=== PATIENT | female | born 1950 | race Caucasian/White ===

== ENCOUNTER 2025-01-11 13:55 | Emergency (ER) | payer MEDICARE, OTHER, SELFPAY ==
[2025-01-11] VITALS (9 sets, daily range): BP systolic 120–150; BP diastolic 53–91
--- NOTE | 2025-01-11 14:02 | ED.GENMED ---
History of Present Illness
<Jose To PA-C - Last Filed: 01/11/25 16:57>
General
Chief Complaint: Change in Mental Status
Time Seen by Provider: 01/11/25 14:00
History of Present Illness
History of Present Illness:
74-year-old female with history of COPD presents to the emergency department for evaluation of severe confusion. Patient cannot provide essentially no history as she is profoundly disoriented and can answer only basic questions, she is aware of
herself but floridly confused otherwise. Patient's daughter states that she has been progressively more confused for the past 2 weeks, they had seen her primary care physician for this and was felt to be due to a medication change that was started
by the patient's marketing coordinator, at this time the patient daughter is not aware of what this medication was. All outside medical care is through [facility]. Daughter notes that in the past 24 hours she has been essentially unable to hold a
conversation which is very atypical. She does have some degree of baseline confusion but nothing to degree that we are seeing currently. She was administered a neb treatment by EMS due to audible wheezing
Review of Systems
<Jose To PA-C - Last Filed: 01/11/25 16:57>
Review of Systems
Allergies reviewed?: Yes
All Other Systems: ROS reviewed and negative except as documented in HPI and ROS
Phy Exam
<Jose To PA-C - Last Filed: 01/11/25 16:57>
Physical Exam
Physical Exam:
GEN: Well appearing, NAD, WDWN
Eyes: PERRLA, EOMs intact, no scleral icterus
HENT: NCAT, oral mucosa dry, no JVD
Lungs: CTAB, no wheezes, rales, rhonchi, normal chest wall excursion
Cardiac: RRR, no M/R/G, no peripheral edema. Radial pulses 2+ bilat
Abdomen: S, NT, ND, NABS, no masses or hepatosplenomegaly
Neuro: Alert, follows commands, profoundly confused. No focal deficits
MSK: No gross deformity or ecchymosis. No edema. No digital clubbing
Skin: No rashes, petechiae. Normal color, no pallor or jaundice.
Psych: Calm, cooperative, somewhat disheveled
Course
<Jose To PA-C - Last Filed: 01/11/25 16:57>
Orders/Labs/Results
Orders:
Orders
01/11/25 14:01
Electrocardiogram (*1) Urgent
Reason for Study: QTc Monitoring
EKG- Treatment ONCE
01/11/25 14:02
CT Head W/o Iv Contrast Urgent
Comment:
Reason For Exam: confusion
01/11/25 14:11
Complete Blood Count/With Diff Urgent
Comprehensive Metabolic Panel Urgent
Serum Osmolality Urgent
TSH Urgent
Comment: ADD ON
Urinalysis Reflex To Culture Urgent
Date Specimen was Collected: 01/11/25
Time Specimen was Collected: 14:10
Urine Microscopic Reflex Cult Urgent
Urine Sodium Urgent
Date Specimen was Collected: 01/11/25
Time Specimen was Collected: 14:10
Urine Culture Urgent
OUMOU Source: U
Specimen Description:
Date Specimen was Collected: 01/11/25
Time Specimen was Collected: 14:10
01/11/25 14:48
Add On- LAB Urgent
Tests Added?: TSH
01/11/25 14:50
0.9% Sodium Chloride 1000 ml [Nss] 1,000 ml IV BOLUS
CefTRIAXone [Rocephin] 1,000 mg IV NOW STA
01/11/25 16:40
Levetiracetam Injectable [Keppra] 1,000 mg IV NOW STA
01/11/25 16:58
Prothrombin Time Urgent
Abnormal Lab Results
09/21/25
14:11
WBC 12.9 H 10^3/uL
(4.8-10.8)
RBC 5.91 H 10^6/uL
(4.20-5.40)
Hgb 16.2 H g/dL
(12.0-16.0)
Hct 49.9 H %
(37.0-47.0)
MCHC 32.5 L g/dL
(33.0-37.0)
Absolute Neuts (auto) 10.5 H 10^3/uL
(1.4-6.5)
Absolute Monos (auto) 0.8 H 10^3/uL
(0.1-0.6)
Neutrophils % 81.1 H %
(42.2-75.2)
Lymphocytes % 12.2 L %
(20.5-51.1)
BUN 35 H mg/dl
(7-17)
Glucose 115 H mg/dl
(70-99)
Serum Osmolality 310 H mOsm/kg
(275-300)
Calcium 11.0 H mg/dl
(8.4-10.2)
Urine Ketones 3+ A
(Negative)
Ur Occult Blood Reflex 4+ A
(Negative)
Leukocyte Esterase Rfl 3+ A
(Negative)
Urine RBC 16-20 A /HPF
(0-2)
Urine WBC (Reflex) >100 A /HPF
(0-5)
Urine Bacteria (Reflex) Few A
(Negative)
Urine Yeast Few A
(Negative)
Urine Albumin (Reflex) 3+ A
(Neg - Trace)
01/11/25 14:11
01/11/25 14:11
Vital Signs
Initial and Last Documented VS:
Initial Vital Signs
Temp Pulse Resp BP Pulse Ox
98.2 F 55 22 124/53 92
01/11/25 13:57 01/11/25 13:57 01/11/25 13:57 01/11/25 13:57 01/11/25 13:57
Last Documented Vital Signs
Temp Pulse Resp BP Pulse Ox
98.2 F 42 14 144/81 92
01/11/25 13:57 01/11/25 15:00 01/11/25 15:00 01/11/25 15:02 01/11/25 15:00
<Wild Roman MD - Last Filed: 01/11/25 17:36>
Orders/Labs/Results
Orders:
Orders
01/11/25 14:01
Electrocardiogram (*1) Urgent
Reason for Study: QTc Monitoring
EKG- Treatment ONCE
01/11/25 14:02
CT Head W/o Iv Contrast Urgent
Comment:
Reason For Exam: confusion
01/11/25 14:11
Complete Blood Count/With Diff Urgent
Comprehensive Metabolic Panel Urgent
Serum Osmolality Urgent
TSH Urgent
Comment: ADD ON
Urinalysis Reflex To Culture Urgent
Date Specimen was Collected: 01/11/25
Time Specimen was Collected: 14:10
Urine Microscopic Reflex Cult Urgent
Urine Sodium Urgent
Date Specimen was Collected: 01/11/25
Time Specimen was Collected: 14:10
Urine Culture Urgent
OUMOU Source: U
Specimen Description:
Date Specimen was Collected: 01/11/25
Time Specimen was Collected: 14:10
01/11/25 14:48
Add On- LAB Urgent
Tests Added?: TSH
01/11/25 14:50
0.9% Sodium Chloride 1000 ml [Nss] 1,000 ml IV BOLUS
CefTRIAXone [Rocephin] 1,000 mg IV NOW STA
01/11/25 16:40
Levetiracetam Injectable [Keppra] 1,000 mg IV NOW STA
01/11/25 16:58
Prothrombin Time Urgent
Abnormal Lab Results
01/11/25
14:11
WBC 12.9 H 10^3/uL
(4.8-10.8)
RBC 5.91 H 10^6/uL
(4.20-5.40)
Hgb 16.2 H g/dL
(12.0-16.0)
Hct 49.9 H %
(37.0-47.0)
MCHC 32.5 L g/dL
(33.0-37.0)
Absolute Neuts (auto) 10.5 H 10^3/uL
(1.4-6.5)
Absolute Monos (auto) 0.8 H 10^3/uL
(0.1-0.6)
Neutrophils % 81.1 H %
(42.2-75.2)
Lymphocytes % 12.2 L %
(20.5-51.1)
BUN 35 H mg/dl
(7-17)
Glucose 115 H mg/dl
(70-99)
Serum Osmolality 310 H mOsm/kg
(275-300)
Calcium 11.0 H mg/dl
(8.4-10.2)
Urine Ketones 3+ A
(Negative)
Ur Occult Blood Reflex 4+ A
(Negative)
Leukocyte Esterase Rfl 3+ A
(Negative)
Urine RBC 16-20 A /HPF
(0-2)
Urine WBC (Reflex) >100 A /HPF
(0-5)
Urine Bacteria (Reflex) Few A
(Negative)
Urine Yeast Few A
(Negative)
Urine Albumin (Reflex) 3+ A
(Neg - Trace)
01/11/25 14:11
01/11/25 14:11
Vital Signs
Initial and Last Documented VS:
Initial Vital Signs
Temp Pulse Resp BP Pulse Ox
98.2 F 55 22 124/53 92
01/11/25 13:57 01/11/25 13:57 01/11/25 13:57 01/11/25 13:57 01/11/25 13:57
Last Documented Vital Signs
Temp Pulse Resp BP Pulse Ox
98.2 F 42 14 144/81 92
01/11/25 13:57 01/11/25 15:00 01/11/25 15:00 01/11/25 15:02 01/11/25 15:00
<Jose To PA-C - Last Filed: 01/11/25 16:57>
MDM/Problems Addressed
MDM/Problems Addressed:
74-year-old female presents worsening confusion, on arrival she is a GCS of 14 with profound confusion but does follow commands. Unfortunately she is found to have a large hemorrhagic left parietal mass with significant vasogenic edema, no evident
midline shift or herniation. Neurologic status did not change during time in emergency department. Case was discussed with neurosurgery at and the case is excepted. Given IV levetiracetam in the ED for seizure prophylaxis. She will be
transferred to and for further management
<Jose To PA-C - Last Filed: 01/11/25 16:57>
Comment
Comment:
EKG independently interpreted by me shows a sinus bradycardia with a first-degree AV block, no ST changes concerning for ischemia
*Pulse Oximetry
Patient hypoxic: no
*Critical Care Note
Total Time (30-74mins, 75-104mins- exclusive of procedures): 30 minutes
comment:
Critical care time: 30 minutes
Critical care time was exclusive of: Separately billable procedures, treating other patients, and teaching time
Critical care was necessary to treat or prevent imminent or life-threatening deterioration of the following conditions: Intracranial hemorrhage
Critical care time spent personally by me on the following activities:
[x] Review of old charts
[x] Obtaining history from patient or surrogate
[x] Ordering and review of the laboratory studies
[x] Ordering and review of radiographic studies
[x] Ordering and performing treatments and interventions
[x] Patient patient's response to treatment
[x] Development of treatment plan with patient or surrogate
ED Attending Note
<Jose To PA-C - Last Filed: 01/11/25 16:57>
-
Portions of this chart may have been created with voice recognition software.� Occasional wrong word or��sound alike� substitutions may have occurred due to the inherent limitations of voice recognition software.
<Wild Roman MD - Last Filed: 01/11/25 17:36>
ED Attending Note
Patient seen and examined by attending physician: Yes
I performed the substantive portion of visit, reviewed & personally made and approve the management plan that is documented in note by myself or SHANTEL.: Yes
ED Attending Note:
74-year-old female progressive mental status change and confusion over weeks. Much worse last 2 to 3 days. Patient has not noticed this. Family states she has been confused. Denies acute complaints via the patient. Although she does not appear
fully understanding at this time.
On exam patient is nontoxic-appearing she is chronically ill-appearing older for stated age. She is confused. She respond to her name or answer questions appropriately however she did respond to simple commands. She is nonfocal. Neck is supple.
She has no unusual rash. She is minimally tachypneic although this is chronic. Distant breath sounds. Heart bradycardic and regular no murmur. Abdomen soft and nontender. She is warm and dry. She is perfusing well.
Impression is ongoing and progressive mental status change. Possible etiologies include infectious, electrolyte issue, primarily neurologic issue, endocrine issue. Workup in progress
Hemorrhagic left parietal mass. Keppra ordered. Maintain reasonable blood pressure. They are being referred to [facility].
1730... Patient has a bed available. Awaiting ALS transport. If they cannot get ALS shortly she will be flown. Family was updated
Discharge Plan
Departure
Patient Disposition: Acute Care Hospital
Date of Disposition: 01/11/25
Time of Disposition: 16:56
Discharge Problem:
Brain mass, Intracranial hemorrhage
Prescriptions:
No Action
furosemide 40 mg tablet
40 mg PO DAILY
glipizide 10 mg tablet
10 mg PO DAILY
pantoprazole 40 mg tablet,delayed release (DR/EC)
40 mg PO DAILY
gabapentin 300 mg capsule
300 mg PO TID
albuterol sulfate 90 mcg/actuation HFA aerosol inhaler
2 puff INHALATION R [id number] PRN (Reason: sob)
Januvia 100 mg tablet
100 mg PO DAILY
Lumigan 0.01 % drops
1 drp BOTH EYES HS
Trelegy Ellipta 100-62.5-25 mcg blister with device
1 inh INHALATION R DAILY
Referrals:
Wild Donald MD [Family Provider, Family Practice]
Hospital Transfer
Other hospital: [facility]
I certify that the patient requires transfer: Yes
Discussed case with accepting physician: Morgan
Reason for transfer: higher level of care
Interventions
Interventions:
*Risk Screen - Suicide Last Done: 01/11/25 13:57
*General Assessment Last Done: 01/11/25 13:57
*Neglect/Abuse Screening Last Done: 01/11/25 13:57
*ED- Fall Risk Assessment Last Done: 01/11/25 14:07
*ED COVID-19 Vaccine History Last Done: 01/11/25 14:07
ED- Neurological Assessment Last Done: 01/11/25 14:07
ED Swallowing Screen Last Done: 01/11/25 15:01
Discharge Date and Time
Print Language: MICRONESIAN
[2025-01-11 14:23] LABS: Hematocrit 49.9 % (37.0-47.0); Hemoglobin 16.2 g/dL (12.0-16.0); Mean Corp Hgb Conc. 32.5 g/dL (33.0-37.0); Mean Corpuscular Volume 84.4 fL (81.0-99.0); Nucleated Red Blood Cells % 0 %; Platelet Count 277 10^3/uL (130-400); Red Cell Dist. Width 13.7 % (11.5-14.5)
[2025-01-11 14:40] LABS: Urine Character Clear (Clear)
[2025-01-11 14:46] LABS: ALT (SGPT) 18 U/L (0-35); AST (SGOT) 23 U/L (14-36); Albumin 4.8 g/dl (3.5-5.0); Alkaline Phosphatase 78 U/L (38-126); Blood Urea Nitrogen 35 mg/dl (7-17); Calcium 11.0 mg/dl (8.4-10.2); Carbon Dioxide 25 mmol/L (22-30); Chloride 106 mmol/L (98-107); Glucose 115 mg/dl (70-99); Potassium 4.5 mmol/L (3.5-5.1); Sodium 143 mmol/L (135-145); Total Protein 8.1 g/dl (6.3-8.2); Urine Red Blood Cell 16-20 /HPF (0-2); Urine Squamous Cell 0-2 /LPF (Few); Urine White Cell >100 /HPF (0-5); eGFR 59.12
[2025-01-11] MEDS: ROCEPHIN 1000 MG IV (14:59)
[2025-01-11] MEDS: NSS 1000 IV (14:59)
[2025-01-11 16:17] LABS: TSH 0.49 uIU/ml (0.47-4.68)
[2025-01-11] MEDS: KEPPRA 1000 MG IV (16:59)
[2025-01-11 17:25] LABS: INR 1.02; PT 13.7 Sec (11.4-14.6)
== END 2025-01-11 18:00 | disposition short-term general hospital (02) ==
LOC: EMR 13:55
PROVIDERS: Physician Assistant; EMERGENCY PHYSICIAN Emergency Medicine; FAMILY PHYSICIAN Family Medicine
DX: I62.9 Nontraumatic intracranial hemorrhage, unspecified (principal); R93.89 Abnormal findings on diagnostic imaging of other specified body structures; J44.9 Chronic obstructive pulmonary disease, unspecified; I44.0 Atrioventricular block, first degree; R00.1 Bradycardia, unspecified
CPT/HCPCS: 99291; 96374; 96375; 96361; 70450; 80053; 81003; 81015; 83930; 84300; 84443; 85025; 85610; 87086